=== PATIENT | male | born 1960 | race Caucasian/White ===

== ENCOUNTER → 2017-01-19 | Outpatient (CLI) | payer MEDICARE, MEDICAID ==
[~2017-01-19] MED LIST: COMPAZINE10 MG PO; CORTEF DPS5 MG PO; ELIQUIS5 MG PO; HYDROCORTISONE5 MG PO; LOPRESSOR DPS12.5 MG PO; ULTRAM50 MG PO
== END | disposition home or self-care (01) ==
LOC: RAD.S 01-16 13:19
DX: R13.10 Dysphagia, unspecified (principal); R11.0 Nausea

== ENCOUNTER → 2017-01-20 | Outpatient (CLI) | payer MEDICARE, MEDICAID | END | disposition home or self-care (01) | LOC: RAD.S 07:59 | DX: R11.0 Nausea (principal); R13.10 Dysphagia, unspecified ==